=== PATIENT | female | born 1980 | race African-American/Black ===

== ENCOUNTER 2021-03-20 05:36 | Emergency (ER) | payer MEDICAID, OTHER ==
[~2021-03-20] VITALS: Ht 165.1 cm; Wt 61.2 kg
[2021-03-20 06:32] VITALS: BP 110/73
== END 2021-03-20 07:24 | disposition home or self-care (01) ==
LOC: ER 05:36
DX: J20.9 Acute bronchitis, unspecified (principal); Z20.822 Contact with and (suspected) exposure to COVID-19; F12.10 Cannabis abuse, uncomplicated
CPT/HCPCS: 36415; 71045; 87426

== ENCOUNTER 2021-11-25 14:59 | Emergency (ER) | payer OTHER | END 2021-11-25 15:23 | disposition left against medical advice (07) | LOC: ER 14:59 | DX: R10.9 Unspecified abdominal pain (principal); Z53.21 Procedure and treatment not carried out due to patient leaving prior to being seen by health care provider ==